=== PATIENT | male | born 1945 | race Caucasian/White ===

== ENCOUNTER → 2018-05-27 | Outpatient (REF) | payer MEDICARE, MEDICAID ==
[2018-05-27 19:02] LABS: FERRITIN 13 NG/ML (26-388); IRON (FE) 18 UG/DL (65-175); PERCENT SATURATION 4.3 % (19.7-50.0); TOTAL IRON BINDING CAPACITY 420 UG/DL (250-450)
[2018-05-28 09:48] LABS: FOLATE 7.7 NG/ML
== END ==
LOC: M LAB REF 18:21
DX: D64.9 Anemia, unspecified (principal)
CPT/HCPCS: 82746

== ENCOUNTER → 2019-10-13 | Outpatient (REF) | payer MEDICARE, MEDICAID | LOC: M LAB REF 16:43 | PROVIDERS: ATTEND Internal Medicine Nephrology | DX: I50.32 Chronic diastolic (congestive) heart failure (principal) ==